=== PATIENT | female | born 1995 | race African-American/Black ===

== ENCOUNTER 2017-01-09 13:14 | Emergency (ER) | payer BC, OTHER ==
[~2017-01-09] VITALS: Ht 157.5 cm; Wt 63.5 kg
[~2017-01-09 13:14] MED LIST: KETO10 PO; NAPR-729 PO; PROM25SU8 PO
[2017-01-09 13:16] VITALS: BP 129/78; PULSE 118; RESP 20; TEMP 98.9; O2SAT 100
[2017-01-09 13:54] VITALS: PULSE 88
[2017-01-09] MEDS ORDERED: AMOX500C PO (13:57)
[2017-01-09] MEDS ORDERED: IBUP800T23 PO (13:57)
--- NOTE | 2017-01-09 14:03 | PD ---
HPI Chief Complaint: ENT Complaint Time Seen by Provider: 13:54 Travel History International Travel<30 days: No Contact w/Intl Traveler<30days: No Traveled to known affect area: No History of Present Illness HPI 21-year-old female presents emergency Department with complaint of sore throat since Friday. Reports subjective fever. Denies vomiting, abdominal pain. Reports headache on and off. Denies headache at this time. Denies cough, nasal congestion, ear pain. Reports change in voice. Denies lump in throat, difficulty swallowing, unusual drooling. Reports painful swallowing. Has tried [id number] medications and sore throat spray with no relief of symptoms. Allergies to Biaxin. No other medical complaints. No other modifying factors or associated signs and symptoms. PFSH Past Medical History ?: Not Social History Alcohol Use: No Tobacco Use: No Allergies-Medications (Allergen,Severity, Reaction): Coded Allergies: Biaxin (Verified Allergy, Severe, 01/09/17) Reported Meds & Prescriptions Reported Meds & Active Scripts Active Ibuprofen 800 Mg Tab 800 Mg PO Q6HR PRN Amoxicillin 500 Mg Cap 500 Mg PO BID 10 Days Promethazine Hcl (Promethazine HCl) 25 Mg Tab 25 Mg PO Q6HPRN FOR NAUSEA/VOMITING Toradol (Ketorolac Tromethamine) 10 Mg Tab 10 Mg PO Q6-8HPRN 4 Days Reported Naprosyn (Naproxen) 375 Mg Tab 375 Mg PO BIDPRN Review of Systems Except as stated in HPI: all other systems reviewed are Neg Physical Exam Narrative GENERAL: Well-nourished, well-developed female patient, in no acute distress; afebrile, nontoxic appearing SKIN: Warm and dry. No rash. HEAD: Atraumatic. Normocephalic. EYES: Pupils equal and round at 3 mm with brisk reaction. No scleral icterus. No injection or drainage. PERRLA. ENT: Mucosa pink and dry. Pharynx with 2+ tonsils; with erythema, exudate, and edema. No Uvular edema. No uvular, palatal, or tonsillar deviation. Airway patent. Voice is hoarse. EARS: Bilateral pinnae and external canals appear within normal limits. Bilateral tympanic membranes without erythema, dullness or perforation.. NECK: Trachea midline. Anterior cervical lymphadenopathy and tenderness. CARDIOVASCULAR: Regular rate and rhythm. No murmur appreciated. RESPIRATORY: No accessory muscle use. Clear to auscultation. Breath sounds equal bilaterally. GASTROINTESTINAL: Abdomen soft, non-tender, nondistended. Hepatic and splenic margins not palpable. Bowel sounds are active 4 quadrants. MUSCULOSKELETAL: No obvious deformities. No clubbing. No cyanosis. No edema. NEUROLOGICAL: Awake and alert. Oriented 3. No obvious cranial nerve deficits. Motor grossly within normal limits. Normal speech. Moves all extremities. PSYCHIATRIC: Appropriate mood and affect; insight and judgment normal. Data Data Last Documented VS Vital Signs Date Time Temp Pulse Resp B/P Pulse Ox O2 Delivery O2 Flow Rate FiO2 01/09/17 13:54 88 01/09/17 13:53 18 01/09/17 13:16 98.9 129/78 100 Room Air MDM Medical Decision Making Medical Screen Exam Complete: Yes Emergency Medical Condition: Yes Medical Record Reviewed: Yes Differential Diagnosis Exudative pharyngitis, strep pharyngitis, less likely peritonsillar abscess Narrative Course 21-year-old female physical exam consistent with exudative pharyngitis. Denies lip throat, difficulty swelling, unusual drooling. Patient is afebrile and nontoxic-appearing. Patient reports subjective fever. Heart rate recheck on physical exam is approximately 88 bpm. Amoxicillin, ibuprofen prescribed for home. Patient verbalizes understanding and agreement with treatment plan. Patient is medically cleared and stable for discharge. Discussed reasons to return to the emergency department. Instructed patient to follow up with primary care provider. Patient agrees with treatment plan. The patients vital signs are stable and the patient is stable for outpatient follow-up and treatment. Patient discharged home, stable and in no acute distress. Diagnosis Primary Impression: Exudative pharyngitis Referrals: Primary Care Physician Patient Instructions: General Instructions, Pharyngitis (ED) Departure Forms: School Release, Return to School Date: Jan 11, 2017 Tests/Procedures Additional Instructions: Take Antibiotics as prescribed and complete full course of antibiotics Get plenty of sleep/rest Rest your voice Drink plenty of fluids to prevent dehydration Use warm saltwater gargles to soothe throat pain Use an air humidifier/turn off ceiling fans Use throat lozenges as needed for sore throat Use ibuprofen or acetaminophen as needed to relieve pain and fever Follow-up with your primary care provider within 2-4 days Return immediately to the emergency department with worsening of symptoms Med/Other Pt SpecificInfo: Prescription(s) given Scripts Ibuprofen 800 Mg [id number] Mg PO Q6HR PRN (PAIN) #30 TAB Ref 0 Prov:Ciara Ruby 01/09/17 Amoxicillin 500 Mg [id number] Mg PO BID 10 Days Ref 0 Prov:Ciara Ruby 01/09/17 Disposition: 01 DISCHARGE HOME Condition: Stable Ciara Ruby Jan 09, 2017 14:03
== END 2017-01-09 14:25 | disposition home or self-care (01) ==
LOC: NEPK 13:14
DX: J02.9 Acute pharyngitis, unspecified (principal)
CPT/HCPCS: 99282